=== PATIENT | female | born 2000 | race American Indian/Alaskan Native ===

== ENCOUNTER 2021-06-04 18:02 | Outpatient (CLI) | payer MEDICAID ==
[2021-06-04 19:46] VITALS: BP 87/47
--- NOTE | 2021-06-07 07:16 | Ultrasound Report ---
Limited OB ultrasound INDICATION: well-being FINDINGS: Single live intrauterine . Placenta grade 0 and anterior. heart rate 1 50 bp m. IMPRESSION: Live intrauterine . No abruption is definitely seen. Signer Name: Donte Cao MD Signed: 06/07/2021 7:12 AM Workstation Name: [id number]
== END 2021-06-04 21:46 | disposition home or self-care (01) ==
LOC: TRG 18:02 → APU 18:05 → TRG 21:46
PROVIDERS: ATTEND Obstetrics & Gynecology
DX: Z34.82 Encounter for supervision of other normal pregnancy, second trimester (principal); Z3A.20 20 weeks gestation of pregnancy
CPT/HCPCS: 59025; 76815

== ENCOUNTER 2021-09-25 13:13 | Outpatient (CLI) | payer MEDICAID ==
[2021-09-25 14:22] LABS: Hematocrit 35.5 % (30.3-42.9); Hemoglobin 12.1 gm/dl (10.1-14.3); Mean Corpuscular HGB Conc 34 % (30-34); Mean Corpuscular Volume 91 fl (79-97); Platelet Count 240 K/mm3 (140-440); Red Cell Distribution Width 14.1 % (13.2-15.2)
[2021-09-25 14:23] LABS: Bilirubin,Urine NEG (Negative); Blood,Urine NEG (Negative); Color,Urine Yellow (Yellow); Protein,Urine <15 mg/dL mg/dL (Negative); Urobilinogen,Urine < 2.0 mg/dL (<2.0); WBC,Urine < 1.0 /HPF (0.0-6.0)
[2021-09-25 14:27] VITALS: BP 136/54
[2021-09-25 14:45] LABS: Alanine Aminotransferase 11 units/L (7-56); Uric Acid 3.6 mg/dL (3.5-7.6)
[2021-09-25 14:49] LABS: RBC,Urine < 1.0 /HPF (0.0-6.0)
== END 2021-09-25 15:10 | disposition home or self-care (01) ==
LOC: TRG 13:13 → APU 13:15 → TRG 15:10
PROVIDERS: ATTEND Obstetrics & Gynecology
DX: O62.9 Abnormality of forces of labor, unspecified (principal); Z3A.37 37 weeks gestation of pregnancy
CPT/HCPCS: 36415; 59025; 81001; 82565; 83615; 84450; 84460; 84550; 85027